=== PATIENT | female | born 1995 | race Caucasian/White ===

== ENCOUNTER 2017-01-29 10:56 | Day surgery (SDC) | payer BC ==
[~2017-01-29] VITALS: Ht 170.2 cm; Wt 139.3 kg
[~2017-01-29 10:56] MED LIST: NO HOME MEDICATIONS
[2017-01-29 11:33] VITALS: BP 121/62; PULSE 67; TEMP 98.6
[2017-01-29] MEDS ORDERED: INDERAL 10MG10 MG PO (11:35)
[2017-01-29 12:20] VITALS: BP 119/57; PULSE 67; TEMP 98.3
[2017-01-29 12:35] VITALS: BP 88/50; PULSE 51
[2017-01-29 12:50] VITALS: BP 87/59; PULSE 52
== END 2017-01-29 13:10 | disposition home or self-care (01) ==
LOC: SDCO 10:56
DX: K21.0 Gastro-esophageal reflux disease with esophagitis (principal); R10.11 Right upper quadrant pain
CPT/HCPCS: J2250; J3010

== ENCOUNTER 2017-02-07 15:30 | Emergency (ER) | payer BC ==
[~2017-02-07] VITALS: Ht 170.2 cm; Wt 139.5 kg
[~2017-02-07 15:30] MED LIST changes: +INDERAL 10MG10 MG PO
[2017-02-07 15:35] VITALS: TEMP 99.3
[2017-02-07 18:03] LABS: BASO # 0.1 (0.0-0.2); BASO % 0.6 % (0.0-2.0); EOS # 0.2 (0.0-0.7); EOS % 2.4 % (0-4.0); GRAN # 4.9 (1.4-6.5); GRAN % 55.5 % (42.2-75.2); HEMATOCRIT 36.2 % (37.0-47.0); HEMOGLOBIN 12.4 g/dl (12.5-16.0); LYMPH % 33.7 % (20.0-51.0); MEAN CELL VOLUME 87 fl (80.0-100.0); MEAN CORPUSCULAR HEMOGLOBIN 30 pg (27.0-31.0); MEAN CORPUSCULAR HGB CONC 34 g/dl (33.0-37.0); MEAN PLATELET VOLUME 10.2 fl (7.4-10.4); MONO # 0.7 (0.1-0.6); MONO % 7.6 % (1.7-9.3); PLATELET COUNT 290 K/mm3 (130-400); RED BLOOD COUNT 4.14 M/mm3 (4.10-5.30); REDCELL DISTRIBUTION WIDTH-CV 12.6 % (11.5-14.5); WHITE BLOOD COUNT 8.9 K/mm3 (4.8-10.8)
[2017-02-07 18:15] LABS: ADJUSTED CALCIUM 8.6 mg/dL (8.4-10.2); BILIRUBIN,TOTAL 0.7 mg/dL (0.0-1.0); C-REACTIVE PROTEIN 0.8 mg/dL (0.0-0.9); CALCIUM 8.6 mg/dL (8.4-10.2); CREATININE, serum 0.67 mg/dL (0.52-1.25); POTASSIUM 3.8 mmol/L (3.4-5.0); TOTAL PROTEIN 7.2 gm/dL (6.4-8.2)
[2017-02-07] MEDS ORDERED: NEXPLANON68 MG ID (18:44)
[2017-02-07] MEDS ORDERED: PROTONIX 40MG T40 MG PO (20:18)
[2017-02-07] MEDS ORDERED: NORCO 325 MG-51 TAB PO (20:18)
[2017-02-07] MEDS ORDERED: ZOFRAN ODT4 MG PO (20:18)
[2017-02-07 20:29] VITALS: BP 113/60; PULSE 69
== END 2017-02-07 20:29 | disposition home or self-care (01) ==
LOC: COL.ER 15:30
PROVIDERS: Emergency Medicine
DX: R10.11 Right upper quadrant pain (principal); R11.0 Nausea; K29.70 Gastritis, unspecified, without bleeding
CPT/HCPCS: C9113; J1885; J3010; J7030

== ENCOUNTER → 2017-02-26 | Outpatient (CLI) | payer BC ==
[~2017-02-26] MED LIST changes: +NEXPLANON68 MG ID; +NORCO 325 MG-51 TAB PO; +PROTONIX 40MG T40 MG PO; +ZOFRAN 4MG T4 MG/TAB PO; +ZOFRAN ODT4 MG PO
== END ==
LOC: COL.RAD 08:02
DX: R10.11 Right upper quadrant pain (principal)
CPT/HCPCS: A9537; J2805

== ENCOUNTER 2017-03-11 06:06 | Day surgery (SDC) | payer BC ==
[2017-03-11] VITALS (10 sets, daily range): BP systolic 100–124; BP diastolic 51–69; PULSE 59–76; TEMP 97.6–98.2
[~2017-03-11] VITALS: Ht 170.2 cm; Wt 140.5 kg
[~2017-03-11 06:06] MED LIST changes: -ZOFRAN 4MG T4 MG/TAB PO
[2017-03-11] MEDS ORDERED: ZOFRAN 4MG T4 MG/TAB PO (07:25)
[2017-03-11] MEDS ORDERED: NORCO 325 MG-51 TAB PO (07:26)
== END 2017-03-11 14:15 | disposition home or self-care (01) ==
LOC: SDCO 06:06
DX: K81.1 Chronic cholecystitis (principal); K21.9 Gastro-esophageal reflux disease without esophagitis; K29.70 Gastritis, unspecified, without bleeding; E66.01 Morbid (severe) obesity due to excess calories; Z68.42 Body mass index [BMI] 45.0-49.9, adult
CPT/HCPCS: J0690; J1100; J1170; J1885; J2250; J2270; J2405; J2704; J2710; J2765; J3010; J7120

== ENCOUNTER 2019-05-18 19:09 | Emergency (ER) | payer OTHER ==
[~2019-05-18] VITALS: Ht 170.2 cm; Wt 159.1 kg
[~2019-05-18 19:09] MED LIST changes: +ZOFRAN 4MG T4 MG/TAB PO
[2019-05-18 19:14] VITALS: BP 136/75; TEMP 98.5
[2019-05-18] MEDS ORDERED: SYNTHROID0.1 MG/TAB PO (21:22)
[2019-05-18] MEDS ORDERED: MOBIC 7.5MG7.5 MG PO (21:47)
[2019-05-18 22:11] VITALS: PULSE 64
== END 2019-05-18 22:11 | disposition home or self-care (01) ==
LOC: COL.ER 19:09
DX: S93.402A Sprain of unspecified ligament of left ankle, initial encounter (principal); E03.9 Hypothyroidism, unspecified; Z90.49 Acquired absence of other specified parts of digestive tract; X50.1XXA Overexertion from prolonged static or awkward postures, initial encounter; Y92.009 Unspecified place in unspecified non-institutional (private) residence as the place of occurrence of the external cause